=== PATIENT | female | born 1945 | race Caucasian/White ===

== ENCOUNTER 2017-09-12 12:12 | Inpatient (IN) | payer MEDICARE ==
[~2017-09-12] VITALS: Ht 157.5 cm; Wt 67.5 kg
[2017-09-12] MEDS ORDERED: CYAN25009 PO (12:51)
[2017-09-12] MEDS ORDERED: CHOL2000 PO (12:51)
[2017-09-12] MEDS ORDERED: CLOP75TA PO (12:51)
[2017-09-12] MEDS ORDERED: MELA3TAB62 PO (12:51)
[2017-09-12] MEDS ORDERED: ATOR-2 PO (12:51)
[2017-09-12] MEDS ORDERED: UBID1CAP43 PO (12:51)
[2017-09-12] MEDS ORDERED: ACET80TA PO (12:51)
[2017-09-12] MEDS ORDERED: ASCO100T5 PO (12:51)
[2017-09-12 13:18] LABS: BASOPHILS # (AUTO) 0.03 x10^3/uL (0-0.1); BASOPHILS % (AUTO) 0 % (0-1); EOSINOPHILS # (AUTO) 0.12 x10^3/uL (0-0.4); EOSINOPHILS % (AUTO) 2 % (1-7); LYMPHOCYTES # (AUTO) 2.04 x10^3/uL (1-3.4); LYMPHOCYTES % (AUTO) 26 % (22-44); MD NO; MEAN CORPUSCULAR HEMOGLOBIN 30.8 pg (27.0-34.8); MEAN CORPUSCULAR HGB CONC 32.9 g/dL (32.4-35.8); MEAN CORPUSCULAR VOLUME 93.5 fL (80-100); MONOCYTES # (AUTO) 0.42 x10^3/uL (0.2-0.8); MONOCYTES % (AUTO) 5 % (2-9); NEUTROPHILS # (AUTO) 5.26 x10^3/uL (1.8-6.8); NEUTROPHILS % (AUTO) 67 % (42-75); PLATELET COUNT 341 x10^3/uL (130-400); RED BLOOD COUNT 5.28 x10^6/uL (3.82-5.3); RED CELL DISTRIBUTION WIDTH 14.8 % (9.6-15.2)
[2017-09-12 13:30] LABS: ALANINE AMINOTRANSFERASE 13 U/L (12-78); ALBUMIN 3.9 g/dL (3.4-5.0); ANION GAP 9 mmol/L (5-15); CALCIUM 9.2 mg/dL (8.5-10.1); CHLORIDE 102 mmol/L (98-107); CREATININE 1.02 mg/dL (0.55-1.02)
[2017-09-12 13:32] LABS: ALKALINE PHOSPHATASE 97 U/L (45-117); BILIRUBIN,TOTAL 0.4 mg/dL (0.2-1.0); TOTAL PROTEIN 8.3 g/dL (6.4-8.2)
[2017-09-12 14:01] LABS: CULTURE INDICATED? YES; MICROSCOPIC INDICATED
[2017-09-12] MEDS ORDERED: CEFTRIAXONE PMX 1GM/50ML 50 ML IVPB ONE (15:00)
[2017-09-12] MEDS ORDERED: CEFTRIAXONE PMX 1GM/50ML 50 ML ONE (15:24)
[2017-09-12] MEDS ORDERED: ENALAPRILAT 1.25 MG/ML, 2ML IV PRN (16:30)
[2017-09-12] MEDS ORDERED: POLYETHYLENE GLYCOL 17 GM PACKET PO PRN (16:30)
[2017-09-12] MEDS ORDERED: HYDROcodone/APAP 5/325 TABLET PO PRN (16:30)
[2017-09-12] MEDS ORDERED: DOCUSATE 100 MG CAPSULE PO PRN (16:30)
[2017-09-12] MEDS ORDERED: BISACODYL 10 MG SUPP PR PRN (16:30)
[2017-09-12] MEDS ORDERED: LABETALOL 5MG/ML, 20ML IV PRN (16:30)
[2017-09-12] MEDS ORDERED: ONDANSETRON 4 MG TABLET PO PRN (16:30)
[2017-09-12] MEDS ORDERED: ACETAMINOPHEN 650 MG/20.3 ML UDC PO PRN (16:30)
[2017-09-12 19:15] VITALS: BP 191/73
[2017-09-12 20:00] VITALS: BP 160/91
[2017-09-12] MEDS ORDERED: ATORVASTATIN 20 MG TABLET PO SCH (21:00)
[2017-09-12] MEDS ORDERED: ATORVASTATIN 40 MG TABLET PO SCH (21:00)
[2017-09-12] MEDS ORDERED: MELATONIN 3 MG TABLET PO SCH (21:00)
[2017-09-13] VITALS: BP 131/70
[2017-09-13 00:45] VITALS: BP 141/78
[2017-09-13 04:05] VITALS: BP 118/67
[2017-09-13 05:52] LABS: CHOL/HDL RATIO 3.2; LDL/HDL RATIO 1.6 (0.5-3.0)
[2017-09-13 08:18] VITALS: BP 135/77
[2017-09-13] MEDS ORDERED: CLOPIDOGREL 75 MG TABLET PO SCH (09:00)
[2017-09-13] MEDS ORDERED: TEMPLATE NON-FORMULARY MED. (Ubidecarenone/Vit E Acetate (Co Q-10 100 Mg Softgel) 100 MG) PO SCH (09:00)
[2017-09-13] MEDS ORDERED: ASCORBIC ACID 100 MG PO SCH (09:00)
[2017-09-13] MEDS ORDERED: ASPIRIN 81 MG TABLET CHEW PO/NG SCH (09:00)
[2017-09-13] MEDS ORDERED: CHOLECALCIFEROL 1,000 UNIT TABLET PO SCH (09:00)
[2017-09-13 10:37] VITALS: BP 163/82
[2017-09-13 15:04] VITALS: BP 138/72
[2017-09-13] MEDS ORDERED: METO25TA35 PO (15:12)
[2017-09-13] MEDS ORDERED: ATOR40TA78 PO (15:12)
[2017-09-13] MEDS ORDERED: ASPI-515 PO/NG (15:12)
== END 2017-09-13 16:43 | disposition home or self-care (01) | DRG 65 ==
LOC: ED 14:37 → EDIP 14:57 → 4EST 16:41
PROVIDERS: ADMIT Family Medicine; ATTEND Family Medicine
DX: I63.9 Cerebral infarction, unspecified (principal); N39.0 Urinary tract infection, site not specified; I45.10 Unspecified right bundle-branch block; E78.5 Hyperlipidemia, unspecified; F17.210 Nicotine dependence, cigarettes, uncomplicated; F41.9 Anxiety disorder, unspecified; I10 Essential (primary) hypertension; I71.4 Abdominal aortic aneurysm, without rupture; I73.9 Peripheral vascular disease, unspecified; K59.00 Constipation, unspecified; Z85.3 Personal history of malignant neoplasm of breast; Z86.011 Personal history of benign neoplasm of the brain
CPT/HCPCS: 36415; 70450; 70551; 80053; 80061; 81001; 83605; 85025; 87040; 87086; 93005; 93306; 93880; 99285; J0696; 92523-GN